=== PATIENT | male | born 1985 | race Caucasian/White ===

== ENCOUNTER 2017-07-18 12:00 | Emergency (ER) | payer SELFPAY ==
[~2017-07-18] VITALS: Ht 170.2 cm; Wt 75.0 kg
[2017-07-18] MEDS ORDERED: LIDOCAINE HCL 1% 20ML VIAL (Pyxis) INJ MC ONE (14:45)
[2017-07-18] MEDS ORDERED: BACITRACIN ZINC OINT UDPKT TOP ONE (14:45)
[2017-07-18] MEDS ORDERED: TETANUS, DIPHTHERIA, PERTUSSIS VAC/PF 0.5ML (>7YR OLD) IM ONE (14:45)
[2017-07-18 17:19] VITALS: BP 129/78
== END 2017-07-18 18:25 | disposition home or self-care (01) ==
LOC: ER 12:15
DX: S51.812A Laceration without foreign body of left forearm, initial encounter (principal); S50.812A Abrasion of left forearm, initial encounter; W26.0XXA Contact with knife, initial encounter; Y93.89 Activity, other specified; Y92.89 Other specified places as the place of occurrence of the external cause; Y99.8 Other external cause status
CPT/HCPCS: 12001; 90471; 90715; 99283; J3490; Z7610

== ENCOUNTER 2019-02-19 00:09 | Emergency (ER) | payer SELFPAY ==
[~2019-02-19] VITALS: Ht 167.6 cm; Wt 82.0 kg
[2019-02-19] MEDS ORDERED: KETOROLAC 15MG/ML VIAL IM ONE (02:15)
[2019-02-19 02:28] VITALS: BP 128/78
== END 2019-02-19 02:33 | disposition home or self-care (01) ==
LOC: ER 00:09
DX: M54.31 Sciatica, right side (principal)
CPT/HCPCS: 96372; 99281; 99283; J1885